=== PATIENT | male | born 1975 | race Caucasian/White ===

== ENCOUNTER 2019-11-12 02:03 | Emergency (ER) | payer MEDICAID ==
[2019-11-12] MEDS ORDERED: Ketorolac 60 MG/2 ML SDV IM ONE (02:30)
--- NOTE | 2019-11-12 02:37 | EDM.PDOC ---
ED HPI GENERAL MEDICAL PROBLEM - General Chief Complaint: Back Pain or Injury Stated Complaint: BACK PAIN Time Seen by Provider: 11/12/19 02:15 Source of Information: Reports: Patient History Limitations: Reports: No Limitations - History of Present Illness INITIAL COMMENTS - FREE TEXT/NARRATIVE: States he had swelling of the right big toe one month ago . Was seen and told he had gout , was started on prednisone, states he has been taking the medication and ran out , still has pain ans swelling of the toe denies blood work done to confirm gout states not taking any other medication for gout States he is having low back pain , localized non radiating Onset: Today Onset Date: 11/12/19 Duration: Getting Worse Location: Reports: Back, Lower Extremity, Right Quality: Reports: Ache, Pressure Severity: Moderate Improves with: Reports: Heat Therapy Worsens with: Reports: Cold Therapy Associated Symptoms: Reports: No Other Symptoms Right Lower Back Pain Score (Numeric/FACES): 8 - Related Data Allergies Allergy/AdvReac Type Severity Reaction Status Date / Time No Known Allergies Allergy Verified 11/12/19 02:08 Home Meds: Home Meds Cyclobenzaprine [Flexeril] 10 mg PO TID #30 tab 11/12/19 [Rx] Indomethacin 50 mg PO BID #20 capsule 11/12/19 [Rx] ED ROS GENERAL - Review of Systems Review Of Systems: See Below Constitutional: Reports: No Symptoms HEENT: Reports: No Symptoms Respiratory: Reports: No Symptoms Cardiovascular: Reports: No Symptoms GI/Abdominal: Reports: No Symptoms Musculoskeletal: Reports: Back Pain (mid thoracic region), Foot Pain, Joint Pain (right big toe) Neurological: Reports: No Symptoms Psychiatric: Reports: Anxiety ED EXAM,LOWER BACK PAIN/INJURY - Physical Exam Exam: See Below Exam Limited By: No Limitations General Appearance: Alert, WD/WN, No Apparent Distress Eye Exam: Bilateral Eye: EOMI Ears: Normal External Exam Nose: Normal Inspection Throat/Mouth: Normal Inspection Head: Normocephalic, Sinus Tenderness Neck: Supple, Non-Tender Respiratory/Chest: No Respiratory Distress, Lungs Clear Back Exam: Decreased Range of Motion (lateral flexion) Extremities: Joint Swelling (right big toe , warm and tender to touch) Neurological: Alert, Normal Mood/Affect Psychiatric: Normal Affect Course - Vital Signs Last Recorded V/S: Last Vital Signs Temp 36.4 C 11/12/19 02:23 Pulse 88 11/12/19 02:23 Resp 16 11/12/19 02:23 BP 125/85 11/12/19 02:23 Pulse Ox 99 11/12/19 02:23 - Orders/Labs/Meds Meds: Medications Discontinued Medications Generic Name Dose Route Start Last Admin Trade Name Erendira PRN Reason Stop Dose Admin Ketorolac Tromethamine 60 mg 11/12/19 02:30 11/12/19 02:35 Toradol IM 11/12/19 02:31 60 mg ONETIME ONE Administration Departure - Departure Time of Disposition: 02:45 Disposition: Home, Self-Care 01 Condition: Fair Clinical Impression: Gout, Acute thoracic back pain, Muscle spasm of back - Discharge Information *PRESCRIPTION DRUG MONITORING PROGRAM REVIEWED*: Not Applicable *COPY OF PRESCRIPTION DRUG MONITORING REPORT IN PATIENT MINAL: Not Applicable Prescriptions: Cyclobenzaprine [Flexeril] 10 mg PO TID #30 tab Indomethacin 50 mg PO BID #20 capsule Instructions: Muscle Cramps and Spasms, [id number], Muscle Cramps and Spasms, Thoracic Strain, [id number] Referrals: PCP,None [Primary Care Provider] - Forms: ED Department Discharge Additional Instructions: 1) Keep to warm , will help reduce the pain and swelling 2) OK to take tylenol with the current medication but not ibuprofen Sepsis Event Note (ED) - Evaluation Sepsis Screening Result: No Definite Risk
== END 2019-11-12 02:45 | disposition home or self-care (01) ==
LOC: FB.ED 02:03
DX: M62.830 Muscle spasm of back (principal); M10.9 Gout, unspecified
CPT/HCPCS: 96372; 99283; J1885